=== PATIENT | male | born 1975 | race Caucasian/White ===

== ENCOUNTER 2018-02-24 21:37 | Emergency (ER) | payer OTHER ==
[2018-02-24 21:47] VITALS: BP 134/94
[2018-02-24] MEDS ORDERED: TDAP ADULT 0.5 ML INJ (BOOSTRIX) IM ONE (21:47)
--- NOTE | 2018-02-24 21:58 | EDPHY ---
H & P Time Seen by Provider: 02/24/18 21:38 HPI/ROS: CHIEF COMPLAINT: Hand laceration HISTORY OF PRESENT ILLNESS: Patient states he cut his left hand about an hour prior to arrival. He was using a hole saw to cut a hole in a piece of sheet metal. When the saw engage the metal it spun it out of his grasp cutting his hand. He was not wearing gloves. This occurred at home. He denies numbness or weakness to the fingers. He does not know when his last tetanus vaccination was. He denies other injuries. REVIEW OF SYSTEMS: Negative except per HPI. General Appearance: Alert, no distress. Eyes: Pupils equal and round no icterus Respiratory: No respiratory distress Neurological: Awake, alert, no focal deficits. Skin: Warm and dry, no rashes. Musculoskeletal: Neck is supple nontender. Extremities are symmetrical, full range of motion, no edema. Left hand with jagged 4 cm laceration with some flap component to the palmar surface at the MCP joint of the 2nd and 3rd digit. Tendon function intact for both the profundus and superficialis tendons. Normal sensation. Normal cap refill. Psychiatric: Patient is oriented X 3, there is no agitation. Medical/surgical history: Denies Social history: Drinks alcohol socially. Smoking Status: Never smoked Constitutional: Initial Vital Signs Temperature (C) 36.7 C 02/24/18 21:44 Heart Rate 110 H 02/24/18 21:44 Respiratory Rate 16 02/24/18 21:44 Blood Pressure 134/94 H 02/24/18 21:44 O2 Sat (%) 99 02/24/18 21:44 O2 Delivery Mode Room Air Allergies/Adverse Reactions: No Known Allergies Allergy (Unverified 02/24/18 21:44) Home Medications: Medication Instructions Recorded NK [No Known Home Meds] 02/24/18 Medical Decision Making Procedures: Procedure: 22:15 Laceration repair. Verbal consent was obtained from the patient. The hand laceration on the palmar aspect was anesthetized in the usual fashion with 3 mils of 1% lidocaine with epi. The wound was irrigated, draped and explored to its base with a gloved finger. There were no deep structures involved. No tendon injury was identified. The wound was repaired with 4 0 Prolene. The wound repair was performed with 6 interrupted sutures, good wound approximation obtained. The procedure was performed by myself. Differential Diagnosis: Laceration to left hand as documented above. No evidence of neurovascular or tendon injury. Wound is not contaminated. Reasonable approximation of jagged laceration achieved with 6 simple interrupted sutures. Discussed in detail wound care, scarring, signs and symptoms of infection, timing for suture removal. Tetanus vaccination updated. Stable for discharge. - Data Points Medications Given: Discontinued Medications Diphtheria/Tetanus/Acell Pertussis (Boostrix) 0.5 ml IM .ONCE ONE Stop: 02/24/18 21:48 Last Admin: 02/24/18 21:54 Dose: 0.5 ml Departure - Departure Clinical Impression: Laceration Condition: Good Instructions: Laceration (ED) Additional Instructions: Keep clean and dry as discussed. Wash 1 to 2 times a day with soap and water, rinse well, apply thin layer of antibiotic ointment and keep covered with bandage. Suture removal is in 12-14 days. You did receive a tetanus vaccination which is good for 10 years. If there are any signs of infection including increased pain, swelling, redness or pus, return right away to the emergency department. Referrals: Patient,NotPresent [Primary Care Provider] - As per Instructions
== END 2018-02-24 22:33 | disposition home or self-care (01) ==
LOC: CED 21:37
PROC: 0HQGXZZ Repair Left Hand Skin, External Approach (ICD-10-PCS; principal; 2018-02-24)
DX: S61.412A Laceration without foreign body of left hand, initial encounter (principal); Z23 Encounter for immunization; W45.8XXA Other foreign body or object entering through skin, initial encounter